=== PATIENT | male | born 1965 | race African-American/Black ===

== ENCOUNTER 2018-07-23 22:16 | Observation (INO) | payer MEDICARE, OTHER ==
[2018-07-24] MEDS: morphine 4 MG/ML VIAL IV (00:53)
[2018-07-24] MEDS: SOD CHLORIDE 0.9% 500 ML IV (00:54)
[2018-07-24] MEDS: ONDANSETRON 4 MG INJ IV (00:54)
[2018-07-24 01:09] LABS: ADD MAN DIFF? NO
[2018-07-24 01:13] LABS: ABNORMAL IP MESSAGE 1; BASOPHILS % 0.1 % (0.0-2.0); EOSINOPHILS # 0.1 10^3/ul (0.0-0.5); EOSINOPHILS % 0.7 % (0.0-7.0); HEMATOCRIT 28.7 % (42.0-52.0); HEMOGLOBIN 8.9 g/dl (14.0-18.0); LYMPHOCYTES # 1.4 10^3/ul (0.8-2.9); LYMPHOCYTES % 18.8 % (15.0-51.0); MEAN CORPUSCULAR HEMOGLOBIN 22.3 pg (29.0-33.0); MEAN CORPUSCULAR VOLUME 71.9 fl (82.0-101.0); MEAN PLATELET VOLUME 9.7 fl (7.4-10.4); MONOCYTE # 0.8 10^3/ul (0.3-0.9); NEUTROPHILS % 67.8 % (39.0-77.0); PLATELET COUNT 294 10^3/UL (140-415); POSITIVE DIFF @See below; RED BLOOD COUNT 3.99 10^6/ul (4.70-6.10); RED CELL DISTRIBUTION WIDTH 23.1 % (11.5-14.5)
[2018-07-24 01:13] LABS: WHITE BLOOD COUNT 7.4 10^3/ul (4.8-10.8)
[2018-07-24 01:38] LABS: INR 0.91; PROTIME 12.4 Sec (11.9-14.9)
[2018-07-24 01:44] LABS: ALANINE AMINOTRANSFERASE 103 IU/L (13-69); ALBUMIN 3.9 g/dl (3.3-4.9); ALBUMIN/GLOBULIN RATIO 1.39; ALKALINE PHOSPHATASE 124 IU/L (42-121); ANION GAP 9 (5-13); ASPARTATE AMINO TRANSFERASE 94 IU/L (15-46); BILIRUBIN,INDIRECT 0.1 mg/dl (0-1.1); BILIRUBIN,TOTAL 0.1 mg/dl (0.2-1.3); BLOOD UREA NITROGEN 20 mg/dl (7-20); CARBON DIOXIDE 24 mmol/L (21-31); CHLORIDE 108 mmol/L (97-110); CREATININE 1.11 mg/dl (0.61-1.24); Estimated GFR > 60 mL/min (>60); GLUCOSE 87 mg/dl (70-220); LIPASE 253 U/L (23-300); POTASSIUM 3.6 mmol/L (3.5-5.1); SODIUM 141 mmol/L (135-144); TOTAL PROTEIN 6.7 g/dl (6.1-8.1)
[2018-07-24 01:55] LABS: B-TYPE NATRIURETIC PEPTIDE 247 PG/ML (0-125); TROPONIN-I < 0.012 ng/ml (0.000-0.120)
[2018-07-24] MEDS ORDERED: BISACODYL (EC) 5 MG TAB PO (03:00)
[2018-07-24] MEDS ORDERED: LEVALBUTEROL (NEB) 1.25 MG/0.5 ML AMP HHN (03:00)
[2018-07-24] MEDS ORDERED: NACL 0.9% 3 ML SYG IV (03:00)
[2018-07-24] MEDS ORDERED: FUROSEMIDE 40 MG INJ IV (03:00)
[2018-07-24] MEDS ORDERED: ONDANSETRON 4 MG INJ IV (03:00)
[2018-07-24] MEDS ORDERED: morphine 2 MG INJ IV (03:00)
[2018-07-24] MEDS ORDERED: DOCUSATE SODIUM 100 MG CAP PO (03:00)
[2018-07-24] MEDS ORDERED: NITROGLYCERIN (SL) 0.4 MG TAB SL ×2 (03:00)
[2018-07-24 04:01] LABS: IRON 36 ug/dl (35-150)
[2018-07-24 04:02] LABS: TRIGLYCERIDES 255 mg/dl (0-149)
[2018-07-24 04:02] LABS: CHOLESTEROL 181 mg/dl (100-200)
[2018-07-24] MEDS: morphine 2 MG INJ IV ×2 (04:05→08:14)
[2018-07-24] MEDS: METHYLPREDNISOLONE 125 MG INJ IV (04:05)
[2018-07-24 04:10] LABS: % IRON SATURATION 8 % SAT (22-52); TOTAL IRON BINDING CAPACITY 450 ug/dl (241-421)
[2018-07-24 04:11] LABS: CHOL/HDL RATIO 1.5 RATIO; HDL CHOLESTEROL 118 mg/dl (28-71); LDL CHOLESTEROL,CALCULATED 12 mg/dl
[2018-07-24 04:36] LABS: FERRITIN 15.6 ng/ml (11.1-264.0)
[2018-07-24 05:40] LABS: ADD MAN DIFF? NO
[2018-07-24 05:42] LABS: ABNORMAL IP MESSAGE 1; EOSINOPHILS % 0.8 % (0.0-7.0); HEMATOCRIT 26.1 % (42.0-52.0); HEMOGLOBIN 7.8 g/dl (14.0-18.0); LYMPHOCYTES # 1.1 10^3/ul (0.8-2.9); LYMPHOCYTES % 21.4 % (15.0-51.0); MEAN CORPUSCULAR HGB CONC 29.9 g/dl (32.0-37.0); MEAN CORPUSCULAR VOLUME 73.7 fl (82.0-101.0); MEAN PLATELET VOLUME 10.1 fl (7.4-10.4); MONOCYTE # 0.6 10^3/ul (0.3-0.9); NEUTROPHIL # 3.3 10^3/ul (1.6-7.5); NEUTROPHILS % 65.4 % (39.0-77.0); PLATELET COUNT 260 10^3/UL (140-415); POSITIVE DIFF @See below; RED BLOOD COUNT 3.54 10^6/ul (4.70-6.10); RED CELL DISTRIBUTION WIDTH 23.1 % (11.5-14.5)
[2018-07-24 06:06] LABS: ADD UMIC NO; UR ASCORBIC ACID NEGATIVE (NEGATIVE); UR BILIRUBIN (Dip) NEGATIVE (NEGATIVE); UR BLOOD (Dip) NEGATIVE (NEGATIVE); UR CLARITY CLEAR (CLEAR); UR COLOR YELLOW (YELLOW); UR GLUCOSE (Dip) NEGATIVE (NEGATIVE); UR KETONES (Dip) NEGATIVE (NEGATIVE); UR LEUKOCYTE ESTERASE (Dip) NEGATIVE Leu/ul (NEGATIVE); UR NITRITE (Dip) NEGATIVE (NEGATIVE); UR SPECIFIC GRAVITY (Dip) 1.015 (1.003-1.030); UR TOTAL PROTEIN (Dip) NEGATIVE (NEGATIVE); UR UROBILINOGEN (Dip) NEGATIVE (NEGATIVE)
[2018-07-24 06:21] LABS: ALANINE AMINOTRANSFERASE 87 IU/L (13-69); ALBUMIN 3.4 g/dl (3.3-4.9); ALBUMIN/GLOBULIN RATIO 1.41; ALKALINE PHOSPHATASE 94 IU/L (42-121); ANION GAP 8 (5-13); ASPARTATE AMINO TRANSFERASE 65 IU/L (15-46); BLOOD UREA NITROGEN 18 mg/dl (7-20); CALCIUM 8.7 mg/dl (8.4-10.2); CARBON DIOXIDE 23 mmol/L (21-31); CHLORIDE 108 mmol/L (97-110); CREATININE 1.02 mg/dl (0.61-1.24); Estimated GFR > 60 mL/min (>60); GLUCOSE 83 mg/dl (70-220); MAGNESIUM 1.9 mg/dl (1.7-2.5); POTASSIUM 3.9 mmol/L (3.5-5.1); SODIUM 139 mmol/L (135-144); TOTAL PROTEIN 5.8 g/dl (6.1-8.1)
[2018-07-24 06:21] LABS: ETHANOL < 10.0 mg/dl (0-0)
[2018-07-24 06:50] LABS: HEPATITIS B SURFACE ANTIGEN NEGATIVE (NEGATIVE)
[2018-07-24 07:00] LABS: HIV 1&2 ANTIBODY NEGATIVE (NEGATIVE)
[2018-07-24 07:07] LABS: HEPATITIS C VIRAL ANTIBODY NEGATIVE (NEGATIVE)
[2018-07-24 07:11] LABS: HEPATITIS B SURFACE ANTIBODY POSITIVE (NEGATIVE)
[2018-07-24 08:53] LABS: CREATINE KINASE 93 IU/L (23-200)
[2018-07-24] MEDS ORDERED: ASPIRIN 81 MG TAB PO (09:00)
[2018-07-24] MEDS ORDERED: FUROSEMIDE 20 MG INJ IV (09:00)
[2018-07-24] MEDS ORDERED: predniSONE 20 MG TAB PO (09:00)
[2018-07-24 09:06] LABS: CK INDEX 2.5; CK-MB 2.28 ng/ml (0.0-2.4); TROPONIN-I < 0.012 ng/ml (0.000-0.120)
== END 2018-07-24 09:15 | disposition left against medical advice (07) ==
LOC: E/R 22:16 → 6WM 07-24 02:18
DX: R07.9 Chest pain, unspecified (principal); R74.0 Nonspecific elevation of levels of transaminase and lactic acid dehydrogenase [LDH]; J45.909 Unspecified asthma, uncomplicated; I10 Essential (primary) hypertension; D50.9 Iron deficiency anemia, unspecified
CPT/HCPCS: 36415; 71045; 76705; 80053; 80061; 80307; 81003; 82550; 82553; 82728; 83036; 83540; 83690; 83735; 83880; 84443; 84484; 85025; 85378; 85610; 85730; 86703; 86706; 86709; 86803; 87340; 93005; 96374; 96375; 99285-25; G0378

== ENCOUNTER 2018-07-25 17:50 | Inpatient (IN) | payer MEDICARE, OTHER ==
[2018-07-25 19:14] LABS: ADD MAN DIFF? NO
[2018-07-25 19:33] LABS: MODE ROOM AIR; MetHgb Venous 0.1 %; Sample Type Blood venous; Site VENOUS LINE; Venous COHb 4.1 %; Venous Fraction OxyHgb 46.5 %; Venous Oxygen Sat 48.5 mmHG (55.0-75.0); Venous Total Hemglobin 10.3 g/dl
[2018-07-25 19:35] LABS: ANION GAP 14 (5-13); BLOOD UREA NITROGEN 22 mg/dl (7-20); CARBON DIOXIDE 23 mmol/L (21-31); CHLORIDE 108 mmol/L (97-110); CREATININE 1.44 mg/dl (0.61-1.24); Estimated GFR > 60 mL/min (>60); GLUCOSE 119 mg/dl (70-220); POTASSIUM 4.1 mmol/L (3.5-5.1); SODIUM 145 mmol/L (135-144)
[2018-07-25] MEDS: DEXAMETHASONE 10 MG/ML 1 ML INJ IV (19:39)
[2018-07-25 19:46] LABS: WHITE BLOOD COUNT 5.9 10^3/ul (4.8-10.8)
[2018-07-25 19:46] LABS: ABNORMAL IP MESSAGE 1; BASOPHILS % 0.2 % (0.0-2.0); EOSINOPHILS % 0.5 % (0.0-7.0); HEMOGLOBIN 8.6 g/dl (14.0-18.0); LYMPHOCYTES # 1.5 10^3/ul (0.8-2.9); LYMPHOCYTES % 25.8 % (15.0-51.0); MEAN CORPUSCULAR HEMOGLOBIN 22.2 pg (29.0-33.0); MEAN CORPUSCULAR HGB CONC 29.7 g/dl (32.0-37.0); MEAN CORPUSCULAR VOLUME 74.9 fl (82.0-101.0); MONOCYTE # 0.4 10^3/ul (0.3-0.9); MONOCYTES % 7.4 % (0.0-11.0); NEUTROPHIL # 3.8 10^3/ul (1.6-7.5); NEUTROPHILS % 64.4 % (39.0-77.0); PLATELET COUNT 317 10^3/UL (140-415); POSITIVE DIFF @See below; RED BLOOD COUNT 3.87 10^6/ul (4.70-6.10); RED CELL DISTRIBUTION WIDTH 23.9 % (11.5-14.5)
[2018-07-25 19:47] LABS: TROPONIN-I < 0.012 ng/ml (0.000-0.120)
[2018-07-25] MEDS: IPRATROPIUM (NEB) 0.5 MG/2.5 ML AMP INH (20:05)
[2018-07-25] MEDS: ALBUTEROL 0.5% (NEB) 2.5 MG/0.5 ML AMP INH (20:05)
[2018-07-25] MEDS: HYDROmorphONE 0.5 MG/0.5 ML SYG IV (20:12)
[2018-07-25] MEDS ORDERED: DOCUSATE SODIUM 100 MG CAP PO (20:30)
[2018-07-25] MEDS ORDERED: ONDANSETRON 4 MG TAB PO (20:30)
[2018-07-25] MEDS ORDERED: ONDANSETRON 4 MG INJ IV (20:30)
[2018-07-25] MEDS ORDERED: ACETAMINOPHEN 325 MG TAB PO (20:30)
[2018-07-25] MEDS ORDERED: NACL 0.9% 3 ML SYG IV (20:30)
[2018-07-25] MEDS ORDERED: BISACODYL (EC) 5 MG TAB PO (20:30)
[2018-07-25] MEDS ORDERED: NON-FORMULARY/PATIENT OWN MED (Budesonide-Formoterol Fumarate* (Symbicort*) 2 PUFF) INHALATION (21:00)
[2018-07-25] MEDS: ALBUTEROL/IPRATROPIUM (NEB) 3 ML AMP HHN (21:00)
[2018-07-25] MEDS: morphine 2 MG INJ IV (22:29)
[2018-07-25] MEDS: METHYLPREDNISOLONE 40 MG INJ IV (22:29)
[2018-07-25] MEDS: SOD CHLORIDE 0.9% 500 ML IV (22:29)
[2018-07-25] MEDS: oxyCODONE 5 MG TAB PO (23:45)
[2018-07-26] MEDS: ALBUTEROL/IPRATROPIUM (NEB) 3 ML AMP HHN ×6 (01:09→20:03)
[2018-07-26] MEDS ORDERED: morphine 2 MG INJ IV (02:30)
[2018-07-26] MEDS ORDERED: LORAZEPAM 1 MG TAB PO (03:00)
[2018-07-26] MEDS: morphine 2 MG INJ IV ×6 (03:13→23:52)
[2018-07-26 03:49] LABS: ADD MAN DIFF? NO
[2018-07-26 03:56] LABS: ABNORMAL IP MESSAGE 1; HEMATOCRIT 27.4 % (42.0-52.0); HEMOGLOBIN 8.2 g/dl (14.0-18.0); LYMPHOCYTES # 0.2 10^3/ul (0.8-2.9); LYMPHOCYTES % 4.3 % (15.0-51.0); MEAN CORPUSCULAR HEMOGLOBIN 22.2 pg (29.0-33.0); MEAN CORPUSCULAR HGB CONC 29.9 g/dl (32.0-37.0); MEAN CORPUSCULAR VOLUME 74.3 fl (82.0-101.0); MEAN PLATELET VOLUME 9.9 fl (7.4-10.4); MONOCYTES % 0.6 % (0.0-11.0); NEUTROPHIL # 4.8 10^3/ul (1.6-7.5); NEUTROPHILS % 93.5 % (39.0-77.0); PLATELET COUNT 302 10^3/UL (140-415); POSITIVE DIFF @See below; RED BLOOD COUNT 3.69 10^6/ul (4.70-6.10); RED CELL DISTRIBUTION WIDTH 23.2 % (11.5-14.5)
[2018-07-26 03:56] LABS: WHITE BLOOD COUNT 5.1 10^3/ul (4.8-10.8)
[2018-07-26 04:09] LABS: CREATINE KINASE 73 IU/L (23-200)
[2018-07-26 04:13] LABS: ALANINE AMINOTRANSFERASE 210 IU/L (13-69); ALBUMIN 3.9 g/dl (3.3-4.9); ALBUMIN/GLOBULIN RATIO 1.44; ALKALINE PHOSPHATASE 108 IU/L (42-121); ANION GAP 11 (5-13); ASPARTATE AMINO TRANSFERASE 121 IU/L (15-46); BLOOD UREA NITROGEN 20 mg/dl (7-20); CALCIUM 9.1 mg/dl (8.4-10.2); CARBON DIOXIDE 23 mmol/L (21-31); CHLORIDE 110 mmol/L (97-110); CREATININE 1.24 mg/dl (0.61-1.24); Estimated GFR > 60 mL/min (>60); GLUCOSE 280 mg/dl (70-220); MAGNESIUM 1.8 mg/dl (1.7-2.5); POTASSIUM 4.6 mmol/L (3.5-5.1); SODIUM 144 mmol/L (135-144); TOTAL PROTEIN 6.6 g/dl (6.1-8.1)
[2018-07-26 04:23] LABS: CK INDEX 2.5; CK-MB 1.82 ng/ml (0.0-2.4); TROPONIN-I < 0.012 ng/ml (0.000-0.120)
[2018-07-26] MEDS: METHYLPREDNISOLONE 40 MG INJ IV ×3 (06:07→21:25)
[2018-07-26 08:14] LABS: AMPHETAMINE/METHAMPHETAMINE Negative (NEGATIVE); BARBITURATES Negative (NEGATIVE); BENZODIAZEPINES Negative (NEGATIVE); CANNABINOIDS Negative (NEGATIVE); COCAINE Negative (NEGATIVE)
[2018-07-26 08:20] LABS: OPIATES Positive (NEGATIVE)
[2018-07-26] MEDS: BUDESONIDE (NEB) 0.5MG/2ML AMP INH ×2 (08:23→19:58)
[2018-07-26] MEDS: ARFORMOTEROL TARTRATE 15MCG/2 ML AMP HHN ×2 (08:23→19:58)
[2018-07-26] MEDS: SERTRALINE 100 MG TAB PO (08:27)
[2018-07-26] MEDS: hydrALAzine 20 MG INJ IV ×2 (08:28→19:33)
[2018-07-26 09:25] LABS: CREATINE KINASE 71 IU/L (23-200)
[2018-07-26 09:39] LABS: CK INDEX 2.6; CK-MB 1.84 ng/ml (0.0-2.4); TROPONIN-I < 0.012 ng/ml (0.000-0.120)
[2018-07-26] MEDS: SOD FERRIC GLUC COMPLX 125 MG in SOD CHLORIDE 0.9% 100 ML IVPB (12:58)
[2018-07-26] MEDS ORDERED: GLUCOSE GEL 15 GRAM TUBE PO ×2 (14:30)
[2018-07-26] MEDS ORDERED: DEXTROSE 50% 50 ML SYRINGE IV ×2 (14:30)
[2018-07-26] MEDS ORDERED: GLUCOSE GEL 15 GRAM TUBE BUCCAL (14:30)
[2018-07-26] MEDS ORDERED: GLUCAGON 1 MG INJ IM (14:30)
[2018-07-26] MEDS: DILTIAZEM (CD) 120 MG CAP PO (15:27)
[2018-07-26] MEDS: INSULIN ASPART [NOVOLOG] 3 ML PEN SC ×2 (17:32→20:36)
[2018-07-26] MEDS: PEG/ELECTROLYTES 4L BTL PO (21:27)
[2018-07-27] MEDS: morphine 2 MG INJ IV (03:13)
[2018-07-27] MEDS: ALBUTEROL/IPRATROPIUM (NEB) 3 ML AMP HHN ×2 (04:09)
[2018-07-27] MEDS: LEVOFLOXACIN 500 MG TAB PO (06:15)
[2018-07-27] MEDS ORDERED: ENOXAPARIN 40 MG/0.4 ML SYG SC (09:00)
== END 2018-07-27 07:30 | disposition left against medical advice (07) | DRG 190 ==
LOC: E/R 17:50 → TEL 21:03
DX: J44.0 Chronic obstructive pulmonary disease with (acute) lower respiratory infection (principal); J18.9 Pneumonia, unspecified organism; N17.9 Acute kidney failure, unspecified; J44.1 Chronic obstructive pulmonary disease with (acute) exacerbation; D50.9 Iron deficiency anemia, unspecified; F32.9 Major depressive disorder, single episode, unspecified; K76.0 Fatty (change of) liver, not elsewhere classified; I10 Essential (primary) hypertension; R73.9 Hyperglycemia, unspecified; R91.8 Other nonspecific abnormal finding of lung field; Z72.0 Tobacco use
CPT/HCPCS: 36415; 71045; 71250; 80048; 80053; 80307; 82550; 82553; 82803; 82962; 83735; 84484; 85025; 93005; 93306; 94640; 94644; 94664; 96374; 96375; 99291-25; G0378

== ENCOUNTER 2018-07-29 18:02 | Emergency (ER) | payer MEDICARE, OTHER ==
[2018-07-29] MEDS: NITROGLYCERIN 2% 1 GM OINT PKT TD (19:06)
[2018-07-29] MEDS: ASPIRIN 325 MG TAB PO (19:07)
[2018-07-29] MEDS: ALBUTEROL 0.5% (NEB) 2.5 MG/0.5 ML AMP INH (19:10)
[2018-07-29] MEDS: ONDANSETRON 4 MG INJ IV ×2 (19:10→21:55)
[2018-07-29] MEDS: morphine 4 MG/ML VIAL IV ×2 (19:11→21:55)
[2018-07-29 19:14] LABS: ADD MAN DIFF? NO
[2018-07-29 19:16] LABS: WHITE BLOOD COUNT 7.6 10^3/ul (4.8-10.8)
[2018-07-29 19:16] LABS: ABNORMAL IP MESSAGE 1; BASOPHILS % 0.3 % (0.0-2.0); EOSINOPHILS # 0.1 10^3/ul (0.0-0.5); EOSINOPHILS % 1.2 % (0.0-7.0); HEMATOCRIT 29.8 % (42.0-52.0); HEMOGLOBIN 8.8 g/dl (14.0-18.0); LYMPHOCYTES # 1.3 10^3/ul (0.8-2.9); LYMPHOCYTES % 16.8 % (15.0-51.0); MEAN CORPUSCULAR HEMOGLOBIN 22.2 pg (29.0-33.0); MEAN CORPUSCULAR HGB CONC 29.5 g/dl (32.0-37.0); MEAN CORPUSCULAR VOLUME 75.3 fl (82.0-101.0); MEAN PLATELET VOLUME 10.2 fl (7.4-10.4); MONOCYTE # 0.5 10^3/ul (0.3-0.9); MONOCYTES % 6.3 % (0.0-11.0); NEUTROPHIL # 5.4 10^3/ul (1.6-7.5); NEUTROPHILS % 71.4 % (39.0-77.0); NUCLEATED RED BLOOD CELLS% 0.3 /100WBC (0.0-0.0); PLATELET COUNT 319 10^3/UL (140-415); POSITIVE DIFF @See below; RED BLOOD COUNT 3.96 10^6/ul (4.70-6.10); RED CELL DISTRIBUTION WIDTH 24.1 % (11.5-14.5)
[2018-07-29 19:42] LABS: ALANINE AMINOTRANSFERASE 154 IU/L (13-69); ALBUMIN 4.1 g/dl (3.3-4.9); ALBUMIN/GLOBULIN RATIO 1.51; ALKALINE PHOSPHATASE 84 IU/L (42-121); ANION GAP 9 (5-13); ASPARTATE AMINO TRANSFERASE 84 IU/L (15-46); BILIRUBIN,INDIRECT 0.4 mg/dl (0-1.1); BILIRUBIN,TOTAL 0.4 mg/dl (0.2-1.3); BLOOD UREA NITROGEN 15 mg/dl (7-20); CALCIUM 9.2 mg/dl (8.4-10.2); CARBON DIOXIDE 26 mmol/L (21-31); CHLORIDE 106 mmol/L (97-110); CREATININE 0.96 mg/dl (0.61-1.24); Estimated GFR > 60 mL/min (>60); GLUCOSE 94 mg/dl (70-220); POTASSIUM 3.9 mmol/L (3.5-5.1); SODIUM 141 mmol/L (135-144); TOTAL PROTEIN 6.8 g/dl (6.1-8.1)
[2018-07-29 19:53] LABS: B-TYPE NATRIURETIC PEPTIDE 101 PG/ML (0-125); TROPONIN-I < 0.012 ng/ml (0.000-0.120)
[2018-07-29] MEDS: METHYLPREDNISOLONE 125 MG INJ IV (22:21)
[2018-07-29 22:52] LABS: TROPONIN-I < 0.012 ng/ml (0.000-0.120)
== END 2018-07-29 22:46 | disposition left against medical advice (07) ==
LOC: E/R 18:02
DX: J44.1 Chronic obstructive pulmonary disease with (acute) exacerbation (principal); I10 Essential (primary) hypertension; F17.210 Nicotine dependence, cigarettes, uncomplicated
CPT/HCPCS: 36415; 71045; 80053; 83880; 84484; 85025; 93005; 94644; 96374; 96375; 96376; 99285-25

== ENCOUNTER 2018-08-11 04:01 | Emergency (ER) | payer MEDICARE, OTHER ==
[2018-08-11 05:04] LABS: ADD MAN DIFF? NO
[2018-08-11 05:06] LABS: WHITE BLOOD COUNT 3.8 10^3/ul (4.8-10.8)
[2018-08-11 05:06] LABS: ABNORMAL IP MESSAGE 1; BASOPHILS % 0.5 % (0.0-2.0); EOSINOPHILS # 0.1 10^3/ul (0.0-0.5); EOSINOPHILS % 1.6 % (0.0-7.0); HEMATOCRIT 30.9 % (42.0-52.0); HEMOGLOBIN 9.2 g/dl (14.0-18.0); LYMPHOCYTES # 0.6 10^3/ul (0.8-2.9); LYMPHOCYTES % 16.8 % (15.0-51.0); MEAN CORPUSCULAR HEMOGLOBIN 22.5 pg (29.0-33.0); MEAN CORPUSCULAR HGB CONC 29.8 g/dl (32.0-37.0); MEAN CORPUSCULAR VOLUME 75.7 fl (82.0-101.0); MEAN PLATELET VOLUME 8.9 fl (7.4-10.4); MONOCYTE # 0.5 10^3/ul (0.3-0.9); MONOCYTES % 14.4 % (0.0-11.0); NEUTROPHIL # 2.5 10^3/ul (1.6-7.5); NEUTROPHILS % 65.9 % (39.0-77.0); PLATELET COUNT 288 10^3/UL (140-415); POSITIVE DIFF @See below; RED BLOOD COUNT 4.08 10^6/ul (4.70-6.10); RED CELL DISTRIBUTION WIDTH 23.3 % (11.5-14.5)
[2018-08-11 05:27] LABS: D-DIMER 259.32 ng/ml (<460)
[2018-08-11 05:27] LABS: ALANINE AMINOTRANSFERASE 32 IU/L (13-69); ALBUMIN 4.3 g/dl (3.3-4.9); ALBUMIN/GLOBULIN RATIO 1.48; ALKALINE PHOSPHATASE 123 IU/L (42-121); ANION GAP 14 (5-13); ASPARTATE AMINO TRANSFERASE 38 IU/L (15-46); BILIRUBIN,INDIRECT 0.1 mg/dl (0-1.1); BILIRUBIN,TOTAL 0.1 mg/dl (0.2-1.3); BLOOD UREA NITROGEN 15 mg/dl (7-20); CALCIUM 9.4 mg/dl (8.4-10.2); CARBON DIOXIDE 22 mmol/L (21-31); CHLORIDE 106 mmol/L (97-110); CREATININE 1.11 mg/dl (0.61-1.24); Estimated GFR > 60 mL/min (>60); GLUCOSE 98 mg/dl (70-220); LIPASE 248 U/L (23-300); POTASSIUM 4.5 mmol/L (3.5-5.1); SODIUM 142 mmol/L (135-144); TOTAL PROTEIN 7.2 g/dl (6.1-8.1)
[2018-08-11] MEDS: DEXAMETHASONE 10 MG/ML 1 ML INJ IV (05:29)
[2018-08-11] MEDS: MAGNESIUM SULFATE 2 GM/50 ML 50 ML IVPB (05:29)
[2018-08-11] MEDS: ONDANSETRON 4 MG INJ IV (05:29)
[2018-08-11] MEDS: morphine 4 MG/ML VIAL IV (05:29)
[2018-08-11 05:38] LABS: TROPONIN-I < 0.012 ng/ml (0.000-0.120)
[2018-08-11] MEDS: SOD CHLORIDE 0.9% 1,000 ML IV (05:49)
[2018-08-11] MEDS ORDERED: HYDROCODONE/APAP (10/325) TAB PO (06:30)
[2018-08-11] MEDS: ALBUTEROL 0.5% (NEB) 2.5 MG/0.5 ML AMP INH (07:01)
[2018-08-11] MEDS: IPRATROPIUM (NEB) 0.5 MG/2.5 ML AMP INH (07:02)
== END 2018-08-11 07:59 | disposition home or self-care (01) ==
LOC: E/R 04:01
DX: J44.1 Chronic obstructive pulmonary disease with (acute) exacerbation (principal); I10 Essential (primary) hypertension; J45.901 Unspecified asthma with (acute) exacerbation
CPT/HCPCS: 36415; 71045; 80053; 83690; 84484; 85025; 85378; 93005; 94644; 96374; 96375; 99285-25